=== PATIENT | female | born 1930 | race Caucasian/White ===

== ENCOUNTER → 2016-08-20 | Outpatient (CLI) | payer OTHER ==
[~2016-08-20] MED LIST: ASPIRIN81 M2 PO; CARAFATE1 GM PO; CLOPIDOGREL BIS75 MG PO; LIPITOR20 MG PO; NORVASC2.5 MG PO; OMEPRAZOLE40 M1 PO; PRILOSEC PO; PRILOSEC40 MG PO; VITAMIN D50000 UNIT PO
--- NOTE | ~2016-08-20 | EKG ---
PATIENT: NOE MARS UNIT #: [id number] Ventricular Rate: 72 BPM Atrial Rate: 72 BPM P-R Interval: 132 ms QRS Duration: 82 ms Q-T Interval: 408 ms QTC Calculation(Bezet): 446 ms P [place]: 55 degrees Calculated R [place]: 33 degrees Calculated T [place]: -32 degrees Diagnosis Line: Normal sinus rhythm Diagnosis Line: Cannot rule out Septal infarct , age undetermined Diagnosis Line: Poor R wave progression questionable lead position Diagnosis Line: or body habitus Diagnosis Line: T wave abnormality, consider inferior ischemia Diagnosis Line: Abnormal ECG Diagnosis Line: No previous ECGs available Diagnosis Line: Confirmed by EVENS BALTAZAR MD ([id number]) on 08/21/2016 Diagnosis Line: 6:21:29 PM INTERPRETING MD: DELANEY HERNADEZ
[2016-08-20 15:19] LABS: HEMATOCRIT 38.2 % (35.0-45.0); HEMOGLOBIN 12.1 gm/dL (12.0-16.0); MEAN CELL VOLUME 84.4 FL (83-96); MEAN CORPUSCULAR HEMOGLOBIN 26.8 PG (28-34); MEAN CORPUSCULAR HGB CONC 31.7 g/dL (30-36); MEAN PLATELET VOLUME 9.5 FL (6.5-11.5); RED BLOOD COUNT 4.52 X10e (3.90-5.30); RED CELL DISTRIBUTION WIDTH 16.6 % (11.0-15.5); WHITE BLOOD COUNT 9.8 X10e3 (4.0-10.5)
[2016-08-20 16:01] LABS: ALBUMIN SERUM 3.8 g/dL (3.5-5.0); ALKALINE PHOSPHATASE 101 U/L (32-92); ALT (SGPT) 13 U/L (10-40); AST (SGOT) 18 U/L (10-42); BILIRUBIN,TOTAL 0.8 mg/dL (0.2-2.0); BLOOD UREA NITROGEN 14 mg/dL (9-23); CALCIUM SERUM 8.4 mg/dL (8.4-10.2); CARBON DIOXIDE 26 mmol/L (22-31); CHLORIDE 106 mmol/L (100-111); CREATININE SERUM 0.7 mg/dL (0.6-1.4); GLOM FILT RATE Estimated ABOVE60 mL/min (>60); GLUCOSE FASTING 114 mg/dL (70-110); POTASSIUM 4.2 mmol/L (3.5-5.1); PROTEIN TOTAL SERUM 7.2 g/dL (6.0-8.3); SODIUM 138 mmol/L (135-145)
== END | disposition home or self-care (01) ==
LOC: CAMB 13:47
PROVIDERS: Specialist
DX: Z01.818 Encounter for other preprocedural examination (principal); R94.31 Abnormal electrocardiogram [ECG] [EKG]
CPT/HCPCS: 36415; 80053; 85027; 93005

== ENCOUNTER → 2016-08-28 | Day surgery (SDC) | payer OTHER ==
--- NOTE | ~2016-08-28 | OR ---
Unit #: [id number] #: [id number] Patient: NOE MARS [id number] [facility] [address] [place], [place] [address] [id number] MR#: [id number] NAME: NOE MARS ROOM: Date of Procedure: 08/28/2016 Admission Date: 08/28/2016 Surgeon: Jaime Huitron M.D. : 1930 Attending Physician: Jaime Huitron M.D. Primary Care Physician: Jaime Palomo D.O. OPERATIVE REPORT PREOPERATIVE DIAGNOSES Chronic cholecystitis and cholelithiasis. POSTOPERATIVE DIAGNOSES Chronic cholecystitis and cholelithiasis. PROCEDURE PERFORMED Laparoscopic cholecystectomy. ANESTHESIA General endotracheal anesthesia. ESTIMATED BLOOD LOSS Less than 20 mL. INDICATIONS FOR PROCEDURE An 86-year-old female with postprandial nausea and right upper quadrant pain who was found on ultrasound to have cholelithiasis with normal biliary ductal system. Preoperative liver chemistries were normal. DESCRIPTION OF PROCEDURE The patient was admitted to [facility], positively identified, and transported to the operating room, and after induction of general endotracheal anesthesia, she was prepped and draped in usual sterile fashion. A 5-mm supraumbilical incision made. Veress needle was placed. Pneumoperitoneum was created. Then, a 5-mm trocar was placed. Laparoscope was introduced into peritoneal cavity under direct vision. The epigastric and lateral ports were placed. Gallbladder was grasped and elevated. Adhesions were stripped away and the infundibulum was identified and retracted laterally. [place] of [place] was completely dissected out identifying the cystic duct, gallbladder, and cystic duct-common duct junction and the posteriorly placed cystic artery. Once the triangle was completely dissected free and these were the only 2 structures, a single clip was placed in the cystic duct centered to gallbladder and 3 clips were placed distally and the cystic duct sharply divided. Posteriorly, the cystic artery was doubly clipped proximally and distally and divided. The gallbladder was then dissected out liver bed using cautery dissection. Once it was freed up from its hepatic attachments, it was brought out through the epigastric port. There was good hemostasis. The clips were well positioned. There was no spillage of bile or stones. The epigastric fascial defect was closed with a neoClose device and the closure was airtight. There was no bleeding. I Unit #: [id number] #: [id number] Patient: NOE MARS then reduced the pneumoperitoneum, removed laparoscope and trocars. 0.5% Marcaine with epinephrine was infiltrated in each trocar site. The skin was closed with 4-0 Monocryl subcuticular closure and Dermabond skin adhesive. Sponges and needle counts were correct x3. The patient tolerated the procedure well and was transported to the recovery in stable condition. Findings and postoperative instructions were discussed with her family member. Dictated by... Haja Morrison/di TD: 08/29/2016 01:56 JOB #: [id number] OPERATIVE REPORT X Jaime Huitron MD X PROCEDURE OPERATIVE NOTE
== END | disposition home or self-care (01) ==
LOC: CSUR 08:21
DX: K80.10 Calculus of gallbladder with chronic cholecystitis without obstruction (principal); F17.210 Nicotine dependence, cigarettes, uncomplicated; Z90.49 Acquired absence of other specified parts of digestive tract; Z98.41 Cataract extraction status, right eye; Z98.42 Cataract extraction status, left eye; Z98.890 Other specified postprocedural states
CPT/HCPCS: 88304; J0131; J0330; J0690; J1170; J2710; J3010

== ENCOUNTER → 2017-01-02 | Outpatient (CLI) | payer OTHER | END | disposition home or self-care (01) | LOC: CLAB 14:06 | DX: R19.7 Diarrhea, unspecified (principal) | CPT/HCPCS: 83630; 87493 ==